=== PATIENT | female | born 1955 | race Caucasian/White ===

== ENCOUNTER → 2016-11-21 | Outpatient (CLI) | payer MEDICARE, OTHER ==
[~2016-11-21] MED LIST: AMLO5TAB22 PO; AMOX875T PO; CELE20TA PO; DICY1TAB26 PO; FERR324T4 PO; PROT40TA PO; SUCR1TAB PO; TAB-TAB PO; VITA20002 PO; ZOFR4TAB3 SL
== END ==
LOC: PLAB 09:36
PROVIDERS: ATTEND Colon & Rectal Surgery
DX: Z85.038 Personal history of other malignant neoplasm of large intestine (principal)
CPT/HCPCS: 36415; 82378

== ENCOUNTER → 2016-12-19 | Outpatient (CLI) | payer MEDICARE, OTHER ==
[2016-12-19 13:04] LABS: ANION GAP 7 MEQ/L (5-15); AST (GOT) 40 U/L (15-37); BLOOD UREA NITROGEN 17 MG/DL (7-18); CHLORIDE 106 MEQ/L (98-107); GLOMERULAR FILTRATION RATE 90 ML/MIN (>89); GLUCOSE,FASTING 81 MG/DL (74-99); SODIUM (NA) 142 MEQ/L (136-145)
[2016-12-19 13:15] LABS: ALKALINE PHOSPHATASE 73 U/L (45-117); ALT (GPT) 51 U/L (10-53); LDL CHOLESTEROL 143 MG/DL (0-99); TOTAL BILIRUBIN ADULT 0.5 MG/DL (0.2-1.0)
[2016-12-19 13:31] LABS: MEAN CELL VOLUME 85.3 FL (80.0-100.0); MEAN CORPUSCULAR HEMOGLOBIN 27.4 PG (27.0-34.0); MEAN CORPUSCULAR HGB CONC 32.2 % (32.0-36.0); PLATELET COUNT 204 TH/MM3 (150-450); RED BLOOD COUNT 5.27 MIL/MM3 (4.00-5.30); REVIEW FLAG FINAL; WHITE BLOOD COUNT 5.2 TH/MM3 (4.0-11.0)
== END ==
LOC: PLAB 09:19
PROVIDERS: ATTEND Family Medicine
DX: E78.2 Mixed hyperlipidemia (principal); C18.9 Malignant neoplasm of colon, unspecified; D63.0 Anemia in neoplastic disease; D50.9 Iron deficiency anemia, unspecified; I10 Essential (primary) hypertension; R55 Syncope and collapse; F32.9 Major depressive disorder, single episode, unspecified; M54.5 Low back pain; R73.09 Other abnormal glucose
CPT/HCPCS: 36415; 80053; 80061; 82378; 84443; 85027

== ENCOUNTER → 2017-03-19 | Outpatient (CLI) | payer MEDICARE, OTHER | LOC: PLAB 09:03 | PROVIDERS: ATTEND Colon & Rectal Surgery | DX: Z85.038 Personal history of other malignant neoplasm of large intestine (principal) | CPT/HCPCS: 36415; 82378 ==

== ENCOUNTER → 2017-06-05 | Outpatient (CLI) | payer MEDICARE, OTHER ==
[~2017-06-05] MED LIST changes: +ASPI-99 PO; +CARA1SUS3 PO; +FERR325T8 PO; +LOSA25TA PO; +LOVA10TA PO; +MULT-159 PO; +PANT20 PO; +VITA2000 PO
[2017-06-05 12:51] LABS: AUTOMATED NEUTROPHIL # 3.2 TH/MM3 (1.8-7.7); BASOPHIL # 0.1 TH/MM3 (0-0.2); BASOPHIL % 1.2 % (0.0-2.0); EOSINOPHIL # 0.1 TH/MM3 (0-0.4); EOSINOPHIL % 1.5 % (0.0-4.0); HEMATOCRIT 42.8 % (35.0-46.0); HEMO FLAGS DIFF FINAL; LYMPH % 26.9 % (9.0-44.0); LYMPHOCYTE # 1.4 TH/MM3 (1.0-4.8); MEAN CELL VOLUME 87.2 FL (80.0-100.0); MEAN CORPUSCULAR HEMOGLOBIN 28.5 PG (27.0-34.0); MEAN CORPUSCULAR HGB CONC 32.7 % (32.0-36.0); MONO % 8.3 % (0.0-8.0); NEUT % 62.1 % (16.0-70.0); PLATELET COUNT 224 TH/MM3 (150-450); RED CELL DISTRIBUTION WIDTH 14.6 % (11.6-17.2); WHITE BLOOD COUNT 5.2 TH/MM3 (4.0-11.0)
[2017-06-05 13:19] LABS: ANION GAP 6 MEQ/L (5-15); AST (GOT) 35 U/L (15-37); BICARBONATE 28.1 MEQ/L (21.0-32.0); BLOOD UREA NITROGEN 15 MG/DL (7-18); CHLORIDE 106 MEQ/L (98-107); GLOMERULAR FILTRATION RATE 92 ML/MIN (>89); GLUCOSE,FASTING 84 MG/DL (74-99); MAGNESIUM 2.3 MG/DL (1.5-2.5); POTASSIUM 3.8 MEQ/L (3.5-5.1); SODIUM (NA) 140 MEQ/L (136-145)
[2017-06-05 13:46] LABS: ALKALINE PHOSPHATASE 81 U/L (45-117); ALT (GPT) 43 U/L (10-53); FERRITIN 10 NG/ML (8-252); HDL CHOLESTEROL 40.3 MG/DL (40.0-60.0); LDL CHOLESTEROL 127 MG/DL (0-99); TOTAL BILIRUBIN ADULT 0.4 MG/DL (0.2-1.0); TRANSFERRIN IRON PROFILE 299 MG/DL (200-360)
== END ==
LOC: PLAB 08:34
PROVIDERS: ATTEND Nurse Practitioner
DX: D50.9 Iron deficiency anemia, unspecified (principal); E78.5 Hyperlipidemia, unspecified; E78.00 Pure hypercholesterolemia, unspecified; E66.3 Overweight; E55.9 Vitamin D deficiency, unspecified
CPT/HCPCS: 36415; 80053; 80061; 82306; 82607; 82728; 82746; 83540; 83550; 83735; 83970; 84100; 84590; 85025

== ENCOUNTER 2017-07-03 11:09 | Observation (INO) | payer MEDICARE, OTHER ==
[~2017-07-03] VITALS: Ht 160 cm; Wt 74.0 kg
[~2017-07-03 11:09] MED LIST changes: -ASPI-99 PO; -CARA1SUS3 PO; -FERR325T8 PO; -LOSA25TA PO; -LOVA10TA PO; -MULT-159 PO; -PANT20 PO; -VITA2000 PO
[2017-07-03 11:11] VITALS: BP 190/94; PULSE 91; RESP 20; TEMP 98.8; O2SAT 98
[2017-07-03] MEDS ORDERED: LOSA25TA PO (11:49)
[2017-07-03] MEDS ORDERED: SODIUM CHLORIDE 0.9% FLUSH 10 ML FLUSH IVF PRN (12:00)
--- NOTE | 2017-07-03 12:01 | PD ---
HPI Chief Complaint: Neuro Symptoms/ Deficits Time Seen by Provider: 12:00 Travel History International Travel<30 days: No Contact w/Intl Traveler<30days: No Traveled to known affect area: No History of Present Illness HPI 61 yo F with brief interval of R face numbness and R face droop prior to ER arrival. RUE numbness reported also resolved. no similar priors. Hx HTN/HLD. No hx CVA/CAD or DM. Location neurologic. Severity mild. Timing resolved. PFSH Past Medical History Arthritis: Yes Blood Disorders: No Depression: Yes Cancer: Yes (MELANOMA RIGHT LEG; COLON ) Cardiovascular Problems: Yes (NEUROCARDIOGENIC SYNCOPE) High Cholesterol: Yes Chemotherapy: No Diabetes: No Diminished Hearing: No Endocrine: No Gastrointestinal Disorders: Yes (IBS, NSAID INDUCED STOMACH EROSION ) GERD: Yes Glaucoma: No Genitourinary: No Hepatitis: No Hiatal Hernia: No Hypertension: Yes Immune Disorder: No Implanted Vascular Access Dvce: Yes (CAGE IN LUMBAR SPINE) Medical other: Yes (HX SEPSIS (EVISERATION STOMACH WOUND)) Musculoskeletal: Yes Neurologic: Yes (VERTIGO FROM HEART ISSUES ) Psychiatric: No Reproductive: No Respiratory: No Radiation Therapy: No Thyroid Disease: No Tetanus Vaccination: Unknown Influenza Vaccination: Yes Past Surgical History Abdominal Surgery: Yes (GASTRIC BYPASS, REPAIR GASTRIC LEAK, APPY, LAP. ALAN) AICD: No Appendectomy: Yes Body Medical Devices: HARDWARE LUMBAR SPINE Cholecystectomy: Yes Gynecologic Surgery: Yes (HYSTERECTOMY, LESA PACO) Hysterectomy: Yes Joint Replacement: No Neurologic Surgery: Yes (LUMBAR LAMINECTOMY WITH FUSION) Pacemaker: No Other Surgery: Yes Social History Alcohol Use: No Tobacco Use: No Substance Use: No Allergies-Medications (Allergen,Severity, Reaction): Coded Allergies: alcohol (Verified Allergy, Severe, HIVES, 07/03/17) diatrizoate meglumine (Verified Allergy, Severe, HIVES, 07/03/17) diclofenac (Verified Allergy, Severe, GASTRIC EROSION, 07/03/17) etodolac (Verified Allergy, Severe, GASTRIC EROSION, 07/03/17) flurbiprofen (Verified Allergy, Severe, GASTRIC EROSION, 07/03/17) gadobenic acid (Verified Allergy, Severe, HIVES, 07/03/17) gadodiamide (Verified Allergy, Severe, HIVES, 07/03/17) gadoteridol (Verified Allergy, Severe, HIVES, 07/03/17) ibuprofen (Verified Allergy, Severe, GASTRIC EROSION, 07/03/17) indomethacin (Verified Allergy, Severe, GASTRIC EROSION, 07/03/17) iodixanol (Verified Allergy, Severe, HIVES, 07/03/17) iohexol (Verified Allergy, Severe, HIVES, 07/03/17) ketoprofen (Verified Allergy, Severe, GASTRIC EROSION, 07/03/17) ketorolac (Verified Allergy, Severe, GASTRIC EROSION, 07/03/17) naproxen (Verified Allergy, Severe, GASTRIC EROSION, 07/03/17) oxaprozin (Verified Allergy, Severe, GASTRIC EROSION, 07/03/17) shellfish derived (Verified Allergy, Severe, HIVES, 07/03/17) iodine (Verified Allergy, Mild, HIVES, 07/03/17) 03/02/20 IV ONLY BETADINE OK potassium iodide (Verified Allergy, Mild, HIVES, 07/03/17) 03/02/20 IV ONLY BETADINE OK povidone-iodine (Verified Allergy, Mild, HIVES, 07/03/17) 03/02/20 IV ONLY BETADINE OK sodium iodide (Verified Allergy, Mild, HIVES, 07/03/17) 03/02/20 IV ONLY BETADINE OK sodium iodide (Verified Allergy, Mild, HIVES, 07/03/17) 03/02/20 IV ONLY BETADINE OK Reported Meds & Prescriptions Reported Meds & Active Scripts Active Reported Carafate Liq (Sucralfate) 1 Gm/10 Ml Susp 1 Gm PO TID PRN on empty stomach Multivitamins (Multivitamin) 1 Each Tab.chew 3 Tab PO DAILY Ferrous Sulfate 325 Mg (65 Mg Iron) Tablet 325 Mg PO DAILY Celexa (Citalopram Hydrobromide) 20 Mg Tab 20 Mg PO HS Vitamin D3 (Cholecalciferol) 2,000 Unit Cap 2,000 Units PO DAILY Losartan (Losartan Potassium) 25 Mg Tab 25 Mg PO DAILY Review of Systems Except as stated in HPI: all other systems reviewed are Neg General / Constitutional: No: Fever Physical Exam Narrative GENERAL: WNWD, 61 yo F, NAD, speaking sentences SKIN: Warm and dry. HEAD: Atraumatic. Normocephalic. EYES: Pupils equal and round. No scleral icterus. No injection or drainage. ENT: No nasal bleeding or discharge. Mucous membranes pink and moist. NECK: Trachea midline. No JVD. CARDIOVASCULAR: Regular rate and rhythm. RESPIRATORY: No accessory muscle use. Clear to auscultation. Breath sounds equal bilaterally. GASTROINTESTINAL: Abdomen soft, non-tender, nondistended. Hepatic and splenic margins not palpable. MUSCULOSKELETAL: Extremities without clubbing, cyanosis, or edema. No obvious deformities. NEUROLOGICAL: CN normal. Motor function normal 5/5 motor function throughout. PSYCHIATRIC: Appropriate mood and affect; insight and judgment normal. Data Data Last Documented VS Vital Signs Date Time Temp Pulse Resp B/P (MAP) Pulse Ox O2 Delivery O2 Flow Rate FiO2 07/03/17 13:00 64 18 195/86 (122) 97 Room Air 07/03/17 11:11 98.8 VS reviewed Orders Orders Electrocardiogram (07/03/17 12:00) Complete Blood Count With Diff (07/03/17 12:00) Basic Metabolic Panel (Bmp) (07/03/17 12:00) Ct Brain W/O Iv Contrast(Rout) (07/03/17 12:00) Ecg Monitoring (07/03/17 12:00) Iv Access Insert/Monitor (07/03/17 12:00) Oximetry (07/03/17 12:00) Sodium Chloride 0.9% Flush (Ns Flush) (07/03/17 12:00) Troponin I (07/03/17 12:21) Admit Order (Ed Use Only) (07/03/17 13:18) Labs Laboratory Tests Test 07/03/17 12:10 White Blood Count 5.8 TH/MM3 Red Blood Count 5.12 MIL/MM3 Hemoglobin 14.6 GM/DL Hematocrit 43.6 % Mean Corpuscular Volume 85.3 FL Mean Corpuscular Hemoglobin 28.6 PG Mean Corpuscular Hemoglobin Concent 33.5 % Red Cell Distribution Width 14.5 % Platelet Count 223 TH/MM3 Mean Platelet Volume 9.7 FL Neutrophils (%) (Auto) 60.1 % Lymphocytes (%) (Auto) 29.7 % Monocytes (%) (Auto) 7.9 % Eosinophils (%) (Auto) 1.1 % Basophils (%) (Auto) 1.2 % Neutrophils # (Auto) 3.5 TH/MM3 Lymphocytes # (Auto) 1.7 TH/MM3 Monocytes # (Auto) 0.5 TH/MM3 Eosinophils # (Auto) 0.1 TH/MM3 Basophils # (Auto) 0.1 TH/MM3 CBC Comment DIFF FINAL Differential Comment Blood Urea Nitrogen 17 MG/DL Creatinine 0.62 MG/DL Random Glucose 93 MG/DL Calcium Level 8.9 MG/DL Sodium Level 139 MEQ/L Potassium Level 3.9 MEQ/L Chloride Level 107 MEQ/L Carbon Dioxide Level 26.9 MEQ/L Anion Gap 5 MEQ/L Estimat Glomerular Filtration Rate 97 ML/MIN Troponin I LESS THAN 0.02 NG/ML MDM Medical Decision Making Medical Screen Exam Complete: Yes Emergency Medical Condition: Yes Medical Record Reviewed: Yes Differential Diagnosis TIA, CVA, electrolyte imbalance, anxiety, anemia Narrative Course CBC & BMP Diagram 07/03/17 12:10 Calcium Level 8.9 Tn < 0.02 Last [address] 07/03/17 1200 Signed Impressions: Service Date/Time: June 12:18 - CONCLUSION: Normal examination. Meng Portillo MD EKG: Sinus, rate 61, normal axis/intervals, no ischemia Possible TIA D/w Dr Solomon for [facility] Diagnosis Primary Impression: TIA (transient ischemic attack) Qualified Codes: G45.9 - Transient cerebral ischemic attack, unspecified Admitting Information Admitting Physician Requests: Observation Christoph Thompson MD Jul 03, 2017 12:01
[2017-07-03 12:21] VITALS: O2SAT 98
[2017-07-03 12:25] LABS: AUTOMATED NEUTROPHIL # 3.5 TH/MM3 (1.8-7.7); BASOPHIL # 0.1 TH/MM3 (0-0.2); BASOPHIL % 1.2 % (0.0-2.0); EOSINOPHIL # 0.1 TH/MM3 (0-0.4); EOSINOPHIL % 1.1 % (0.0-4.0); HEMATOCRIT 43.6 % (35.0-46.0); HEMO FLAGS DIFF FINAL; LYMPH % 29.7 % (9.0-44.0); LYMPHOCYTE # 1.7 TH/MM3 (1.0-4.8); MEAN CELL VOLUME 85.3 FL (80.0-100.0); MEAN CORPUSCULAR HEMOGLOBIN 28.6 PG (27.0-34.0); MEAN CORPUSCULAR HGB CONC 33.5 % (32.0-36.0); MONO % 7.9 % (0.0-8.0); NEUT % 60.1 % (16.0-70.0); PLATELET COUNT 223 TH/MM3 (150-450); RED BLOOD COUNT 5.12 MIL/MM3 (4.00-5.30); RED CELL DISTRIBUTION WIDTH 14.5 % (11.6-17.2); WHITE BLOOD COUNT 5.8 TH/MM3 (4.0-11.0)
[2017-07-03 12:41] LABS: BICARBONATE 26.9 MEQ/L (21.0-32.0); POTASSIUM 3.9 MEQ/L (3.5-5.1)
--- NOTE | 2017-07-03 12:44 | RADRPT ---
EXAM DATE/TIME: 07/03/2017 12:18 [facility] COMPARISON: No previous studies available for comparison. INDICATIONS : Sudden onset of blurred vision and right side extremity numbness. RADIATION DOSE: 56.35 CTDIvol (mGy) MEDICAL HISTORY : Cardiovascular disease. Hypertension. Vertigo. SURGICAL HISTORY : None. ENCOUNTER: Initial ACUITY: 1 day PAIN SCALE: 0/10 LOCATION: cranial TECHNIQUE: Multiple contiguous axial images were obtained of the head. Using automated exposure control and adj ustment of the mA and/or kV according to patient size, radiation dose was kept as low as reasonably a chievable to obtain optimal diagnostic quality images. DICOM format image data is available electro nically for review and comparison. FINDINGS: CEREBRUM: The ventricles are normal for age. No evidence of midline shift, mass lesion, hemorrhage or acute in farction. No extra-axial fluid collections are seen. POSTERIOR FOSSA: The cerebellum and brainstem are intact. The 4th ventricle is midline. The cerebellopontine angle i s unremarkable. EXTRACRANIAL: The visualized portion of the orbits is intact. SKULL: The calvaria is intact. No evidence of skull fracture. CONCLUSION: Normal examination. Meng Portillo MD on July 03, 2017 at 12:40 Board Certified Radiologist. This report was verified electronically.
[2017-07-03 13:00] VITALS: BP 195/86; PULSE 64; RESP 18; O2SAT 97
[2017-07-03] MEDS ORDERED: CELE20TA PO (13:21)
[2017-07-03] MEDS ORDERED: VITA2000 PO (13:21)
[2017-07-03] MEDS ORDERED: FERR325T8 PO (13:21)
[2017-07-03] MEDS ORDERED: MULT-159 PO (13:21)
[2017-07-03] MEDS ORDERED: CARA1SUS3 PO (13:21)
[2017-07-03 14:30] VITALS: BP 189/87; PULSE 68; RESP 19; O2SAT 97
[2017-07-03] MEDS ORDERED: SUCRALFATE 1 GM/10 ML CUP PO ONE (14:45)
[2017-07-03] MEDS ORDERED: GLUCAGON 1 MG/ML VIAL OTHER PRN (15:00)
[2017-07-03] MEDS ORDERED: SODIUM CHLORIDE 0.9% FLUSH 5 ML FLUSH IV FLUSH PRN (15:00)
[2017-07-03] MEDS ORDERED: DEXTROSE 50% IN WATER 50 ML VIAL(D50) IV PUSH PRN (15:00)
[2017-07-03] MEDS ORDERED: cloNIDine HCL 0.1 MG TAB PO PRN (16:00)
[2017-07-03 16:07] VITALS: BP 162/88; PULSE 65; RESP 14; O2SAT 97
--- NOTE | 2017-07-03 16:25 | HHI.HP ---
[facility] Michael Marquis MD Admission Diagnosis TIA Diagnoses: Chief Complaint: Transient neuro symptoms Travel History International Travel<30 Days: No Contact w/Intl Traveler <30 Da: No Traveled to Known Affected Are: No History of Present Illness Written by Asaf Mace, acting as scribe for Dr. Solomon on 07/03/17 at 16:25. 61-year-old female with past medical history of ideation, GERD, HTN, depression , history of colon cancer and melanoma, history of neurocardiogenic syncope, history gastric bypass. Patient states that earlier today she began having bilateral peripheral vision blurriness. She states she checked her blood pressure at the time which was 210/100. She also had associated right hand weakness and numbness that lasted for a few minutes. She also had transient numbness of her right face lasted for a few minutes. All her symptoms have resolved at this time. She didn't have any right lower extremity symptoms. She was a bit dizzy at the time but that has resolved. She states that she occasionally has intermittent nausea at baseline which she did earlier and improved with Zofran. The patient had an MRI with contrast of her hand done yesterday for arthritis. She denies any allergies to NSAIDs, only GI upset due to gastric bypass history. She states she can take aspirin she gets Protonix. She denies any symptoms like this in the past. Review of Systems Except as stated in HPI: all other systems reviewed are Neg Past Family Social History Past Medical History Iron deficiency anemia GERD History gastric bypass Hypertension History of neurocardiogenic syncope next and depression History of colon cancer History of melanoma Past Surgical History Appendectomy Cholecystectomy Gastric bypass Spine surgery with hardware placement Partial colectomy for cancer Bladder suspension Reported Medications Reported Meds & Active Scripts Active Reported Carafate Liq (Sucralfate) 1 Gm/10 Ml Susp 1 Gm PO TID PRN on empty stomach Multivitamins (Multivitamin) 1 Each Tab.chew 3 Tab PO DAILY Ferrous Sulfate 325 Mg (65 Mg Iron) Tablet 325 Mg PO DAILY Celexa (Citalopram Hydrobromide) 20 Mg Tab 20 Mg PO HS Vitamin D3 (Cholecalciferol) 2,000 Unit Cap 2,000 Units PO DAILY Losartan (Losartan Potassium) 25 Mg Tab 25 Mg PO DAILY Allergies: Coded Allergies: alcohol (Verified Allergy, Severe, HIVES, 07/03/17) diatrizoate meglumine (Verified Allergy, Severe, HIVES, 07/03/17) diclofenac (Verified Allergy, Severe, GASTRIC EROSION, 07/03/17) etodolac (Verified Allergy, Severe, GASTRIC EROSION, 07/03/17) flurbiprofen (Verified Allergy, Severe, GASTRIC EROSION, 07/03/17) gadobenic acid (Verified Allergy, Severe, HIVES, 07/03/17) gadodiamide (Verified Allergy, Severe, HIVES, 07/03/17) gadoteridol (Verified Allergy, Severe, HIVES, 07/03/17) ibuprofen (Verified Allergy, Severe, GASTRIC EROSION, 07/03/17) indomethacin (Verified Allergy, Severe, GASTRIC EROSION, 07/03/17) iodixanol (Verified Allergy, Severe, HIVES, 07/03/17) iohexol (Verified Allergy, Severe, HIVES, 07/03/17) ketoprofen (Verified Allergy, Severe, GASTRIC EROSION, 07/03/17) ketorolac (Verified Allergy, Severe, GASTRIC EROSION, 07/03/17) naproxen (Verified Allergy, Severe, GASTRIC EROSION, 07/03/17) oxaprozin (Verified Allergy, Severe, GASTRIC EROSION, 07/03/17) shellfish derived (Verified Allergy, Severe, HIVES, 07/03/17) atorvastatin (Verified Allergy, Intermediate, MUSCLE ACHES, 07/03/17) iodine (Verified Allergy, Mild, HIVES, 07/03/17) 03/02/20 IV ONLY BETADINE OK potassium iodide (Verified Allergy, Mild, HIVES, 07/03/17) 03/02/20 IV ONLY BETADINE OK povidone-iodine (Verified Allergy, Mild, HIVES, 07/03/17) 03/02/20 IV ONLY BETADINE OK sodium iodide (Verified Allergy, Mild, HIVES, 07/03/17) 03/02/20 IV ONLY BETADINE OK sodium iodide (Verified Allergy, Mild, HIVES, 07/03/17) 03/02/20 IV ONLY BETADINE OK Active Ordered Medications Current Medications Medications (Trade) Dose Ordered Sig/[place] Route Start Time Stop Time Status Last Admin (NS Flush) 2 ml UNSCH PRN IVF 07/03/17 12:00 (NS Flush) 2 ml BID IV FLUSH 07/03/17 21:00 (NS Flush) 2 ml UNSCH PRN IV FLUSH 07/03/17 15:00 (Lipitor) 10 mg HS PO 07/03/17 21:00 (NovoLOG SUPPLEMENTAL SCALE) 1 ACHS SQ 07/03/17 17:00 (D50w (Vial) Inj) 50 ml UNSCH PRN IV PUSH 07/03/17 15:00 (Glucagon Inj) 1 mg UNSCH PRN OTHER 07/03/17 15:00 (Heparin Inj) 5,000 units Q8HR SQ 07/03/17 22:00 (Catapres) 0.1 mg Q6H PRN PO 07/03/17 16:00 07/03/17 15:27 Family History Denies any family history of stroke or TIA Family history of high blood pressure and diabetes Sister had melanoma Brother had prostate cancer Social History Smoked socially in high school, none since Denies any alcohol or drug use with 4 kids Physical Exam Vital Signs Vital Signs Date Time Temp Pulse Resp B/P (MAP) Pulse Ox O2 Delivery O2 Flow Rate FiO2 07/03/17 16:07 65 14 162/88 (112) 97 Room Air 07/03/17 14:30 68 19 189/87 (121) 97 Room Air 07/03/17 13:00 64 18 195/86 (122) 97 Room Air 07/03/17 12:21 Automatic Cuff 98 Room Air 07/03/17 11:11 98.8 91 20 190/94 (126) 98 Room Air Physical Exam GENERAL: Well-developed well-nourished. In no acute distress. SKIN: Warm and dry. No lesions noted. HEENT: Normocephalic. Pupils equal and round. EOMs intact. Mucous membranes pink and moist. CARDIOVASCULAR: Regular rate and rhythm. No murmur appreciated. RESPIRATORY: No accessory muscle use. Clear to auscultation. Breath sounds equal bilaterally. GASTROINTESTINAL: Abdomen soft, non-tender, nondistended. Bowel sounds x4. MUSCULOSKELETAL: No obvious deformities. No clubbing or cyanosis. No edema. NEUROLOGICAL: Awake and alert. No focal neurological deficits. Moves upper and lower extremities spontaneously. Normal speech. Strength 5/5 in all extremities. No facial asymmetry. Sensation grossly intact bilaterally. PSYCHIATRIC: Appropriate mood and affect; insight and judgment normal. Laboratory Laboratory Tests Test 07/03/17 12:10 White Blood Count 5.8 Red Blood Count 5.12 Hemoglobin 14.6 Hematocrit 43.6 Mean Corpuscular Volume 85.3 Mean Corpuscular Hemoglobin 28.6 Mean Corpuscular Hemoglobin Concent 33.5 Red Cell Distribution Width 14.5 Platelet Count 223 Mean Platelet Volume 9.7 Neutrophils (%) (Auto) 60.1 Lymphocytes (%) (Auto) 29.7 Monocytes (%) (Auto) 7.9 Eosinophils (%) (Auto) 1.1 Basophils (%) (Auto) 1.2 Neutrophils # (Auto) 3.5 Lymphocytes # (Auto) 1.7 Monocytes # (Auto) 0.5 Eosinophils # (Auto) 0.1 Basophils # (Auto) 0.1 CBC Comment DIFF FINAL Differential Comment Blood Urea Nitrogen 17 Creatinine 0.62 Random Glucose 93 Calcium Level 8.9 Sodium Level 139 Potassium Level 3.9 Chloride Level 107 Carbon Dioxide Level 26.9 Anion Gap 5 Estimat Glomerular Filtration Rate 97 Troponin I LESS THAN 0.02 Result Diagram: 07/03/17 1210 07/03/17 1210 Imaging Last Impressions Head CT 07/03/17 1200 Signed Impressions: Service Date/Time: June 12:18 - CONCLUSION: Normal examination. MD [facility] VTE Risk Assessment Caprini VTE Risk Assessment: Mod/High Risk (score >= 2) Caprini Risk Assessment Model Point Value = 1 Point Value = 2 Point Value = 3 Point Value = 5 Age 41-60 Minor surgery BMI > 25 kg/m2 Swollen legs Varicose veins or History of unexplained or recurrent spontaneous Oral contraceptives or hormone replacement Sepsis (< 1 month) Serious lung disease, including pneumonia (< 1 month) Abnormal pulmonary function Acute myocardial infarction Congestive heart failure (< 1 month) History of inflammatory bowel disease Medical patient at bed rest Age 61-74 Arthroscopic surgery Major open surgery (> 45 min) Laparoscopic surgery (> 45 min) Malignancy Confined to bed (> 72 hours) Immobilizing plaster cast Central venous access Age >= 75 History of VTE Family history of VTE Factor V Leiden Prothrombin [id number] Lupus anticoagulant Anticardiolipin antibodies Elevated serum homocysteine Heparin-induced thrombocytopenia Other congenital or acquired thrombophilia Stroke (< 1 month) Elective arthroplasty Hip, pelvis, or leg fracture Acute spinal cord injury (< 1 month) Prophylaxis Regimen Total Risk Factor Score Risk Level Prophylaxis Regimen 0-1 Low Early ambulation 2 Moderate Order ONE of the following: *Sequential Compression Device (SCD) *Heparin 5000 units SQ BID 3-4 Higher Order ONE of the following medications: *Heparin 5000 units SQ TID *Enoxaparin/Lovenox 40 mg SQ daily (WT < 150 kg, CrCl > 30 mL/min) *Enoxaparin/Lovenox 30 mg SQ daily (WT < 150 kg, CrCl > 10-29 mL/min) *Enoxaparin/Lovenox 30 mg SQ BID (WT < 150 kg, CrCl > 30 mL/min) AND/OR *Sequential Compression Device (SCD) 5 or more Highest Order ONE of the following medications: *Heparin 5000 units SQ TID (Preferred with Epidurals) *Enoxaparin/Lovenox 40 mg SQ daily (WT < 150 kg, CrCl > 30 mL/min) *Enoxaparin/Lovenox 30 mg SQ daily (WT < 150 kg, CrCl > 10-29 mL/min) *Enoxaparin/Lovenox 30 mg SQ BID (WT < 150 kg, CrCl > 30 mL/min) AND *Sequential Compression Device (SCD) Assessment and Plan Assessment and Plan 61-year-old female with past medical history of ideation, GERD, HTN, depression , history of colon cancer and melanoma, history of neurocardiogenic syncope, history gastric bypass who presented for transient neuro symptoms. TIA: Transient vision changes, right face and upper extremity numbness. Symptoms have resolved at this time. Blood pressure was high at the time, possibly secondary to uncontrolled hypertension. Reviewed: Head CT unremarkable. Telemetry in the ED with NSR. -Standard TIA/stroke workup including swallow eval, stroke scale, neuro checks, telemetry monitoring -Check brain MRI/MRA, carotid ultrasound -Check hemoglobin A1c and lipid profile -Start aspirin with PPI -Continue statin -PT/OT/ST Hypertension: Currently accelerated but improving. Permissive hypertension for now. Resume home losartan probably tomorrow. Clonidine as needed. Other chronic medical conditions include SANDRA, depression, vitamin D deficiency, GERD: Stable at this time and will continue home medications as indicated DVT prophylaxis: Heparin This note was transcribed by gayle Mace . I, Dr. Cayetano Harman personally performed the history, physical exam, and medical decision making; and confirmed the accuracy of the information in the transcribed note. Authenticated by Dr. Cayetano Harman on 07/03/17 at 16:40. Discussed Condition With Patient with and daughter at bedside, ED staff Asaf Mace Jul 03, 2017 16:25 Cayetano So MD Jul 03, 2017 16:54
--- NOTE | 2017-07-03 17:41 | RADRPT ---
EXAM DATE/TIME: 07/03/2017 16:33 [facility] COMPARISON: No previous studies available for comparison. INDICATIONS : Cerebrovascular accident. MEDICAL HISTORY : Hypercholesterolemia. Gastroesophageal reflux disease. Hypertension. Vertigo. IBS. Depression. Melano ma right leg. Colon cancer. SURGICAL HISTORY : Cholecystectomy. Appendectomy. Gastric bypass. Hysterectomy. Lumbar laminectomy. Bladder suspension. Right knee surgery. ENCOUNTER: Initial ACUITY: 1 day PAIN SCORE: 0/10 LOCATION: Bilateral neck PEAK SYSTOLIC VELOCITIES (cm/sec): ICA/CCA RATIO: Right: 1.1 Left: 1.4 ICA: Right: 68 Left: 77 CCA: Right: 64 Left: 55 ECA: Right: 100 Left: 128 VERTEBRAL: Right: 44 antegrade Left: 54 antegrade Elevated flow velocities and ICA/CCA ratios have been found to correlate with increased degrees of vessel stenosis, calculated as percentage of diameter relative to a normal segment of distal ICA/CCA FINDINGS: RIGHT CAROTID: There is moderate atherosclerotic plaquing of the bifurcation. The waveforms are within normal limits . LEFT CAROTID: There is moderate atherosclerotic plaquing at the bifurcation. The waveforms are within normal limits . VERTEBRAL ARTERIES: Antegrade flow is seen in both vertebral arteries. MISCELLANEOUS: None. CONCLUSION: 1. There is fairly extensive plaquing of the bifurcations with both hard and soft plaque present. No hemodynamically significant carotid stenosis is evident by velocity measurements. Christoph Ahmadi MD on July 03, 2017 at 17:37 Board Certified Radiologist. This report was verified electronically.
[2017-07-03] MEDS: INSULIN ASPART SUPPLEMENTAL SCALE SQ SCH ×2 (18:08→20:44)
[2017-07-03] MEDS: PANTOPRAZOLE SOD 20 MG DELAYED RELEASE TAB PO SCH (18:27)
[2017-07-03 20:26] VITALS: BP 164/77; PULSE 55; RESP 18; TEMP 97.9; O2SAT 97
--- NOTE | 2017-07-03 20:27 | RADRPT ---
EXAM DATE/TIME: 07/03/2017 18:36 [facility] COMPARISON: MRI BRAIN W/O CONTRAST, July 03, 2017, 18:36. US CAROTID ARTERIES, July 03, 2017, 16:33. CT BRAIN W/O CONTRAST, July 03, 2017, 12:18. INDICATIONS : CVA. Right sided weakness and facial droop. MEDICAL HISTORY : Hypertension. Carcinoma, colon. SURGICAL HISTORY : Hysterectomy. Cholecystectomy. Appendectomy. Back fusion and gastric bypass. ENCOUNTER: Initial ACUITY: 1 day PAIN SCORE: 0/10 LOCATION: Head. Please note a normal MRA of the brain does not entirely exclude the possibility of a small aneurysm, nor the possibility of distal intracranial vessel disease. TECHNIQUE: 3D time of flight MRA was performed. Source images, multiplanar STS MIP, and 3D volume MIP reconstru ctions were reviewed. FINDINGS: There is excellent visualization of the major intracranial arteries out to the second-order branch ve ssels. There is no evidence for aneurysm, vessel truncation or stenosis, and no evidence for vascula r malformation. CONCLUSION: Normal MRA of the brain. Meng Jacobs MD on July 03, 2017 at 20:25 Board Certified Radiologist. This report was verified electronically.
--- NOTE | 2017-07-03 20:29 | RADRPT ---
EXAM DATE/TIME: 07/03/2017 18:36 [facility] COMPARISON: No previous studies available for comparison. INDICATIONS : CVA. Right arm weakness and right facial droop. MEDICAL HISTORY : Hypertension. Carcinoma, colon. SURGICAL HISTORY : Appendectomy. Hysterectomy. Cholecystectomy. Gastric bypass and back fusion. ENCOUNTER: Initial ACUITY: 1 day PAIN SCORE: 0/10 LOCATION: Head. TECHNIQUE: Multiplanar, multisequence MRI of the brain was performed without contrast. FINDINGS: CEREBRUM: The ventricles are normal for age. No evidence of midline shift, mass lesion, hemorrhage or acute in farction. No extraaxial fluid collections are seen. The sella is empty. WHITE MATTER: No significant signal abnormalities are seen in the white matter. POSTERIOR FOSSA: The cerebellum and brainstem are intact. The 4th ventricle is midline. The cerebellopontine angle is unremarkable. The cerebellar tonsils are normal in position. DIFFUSION IMAGING: No focal areas of restricted diffusion are seen. No evidence of acute infarction. EXTRACRANIAL: The visualized portions of the orbits and paranasal sinuses are unremarkable. Skull hyperostosis agai n noted. CONCLUSION: 1. No acute intracranial abnormality. 2. Incidentally seen empty sella. Meng Jacobs MD on July 03, 2017 at 20:27 Board Certified Radiologist. This report was verified electronically.
[2017-07-03 20:31] LABS: HEMOGLOBIN A1a 1.1 %; HEMOGLOBIN A1b 0.8 %; HEMOGLOBIN Ao 85.2 %; HEMOGLOBIN LA1C 2.2 %; HEMOGLOBIN P3 5.3 %
[2017-07-03] MEDS ORDERED: CITALOPRAM HYDROBROMIDE 20 MG TAB PO SCH (21:00)
[2017-07-03] MEDS: SODIUM CHLORIDE 0.9% FLUSH 5 ML FLUSH IV FLUSH SCH (21:00)
[2017-07-03] MEDS ORDERED: ATORVASTATIN 10 MG TAB PO SCH (21:00)
[2017-07-03] MEDS: HEPARIN SODIUM - SQ 10,000 UNITS/ML VIAL SQ SCH (21:36)
[2017-07-03] MEDS ORDERED: ACETAMINOPHEN 325 MG TAB PO PRN (22:30)
[2017-07-04] VITALS (8 sets, daily range): BP systolic 82–170; BP diastolic 52–86; PULSE 47–95; RESP 16–18; TEMP 97.7–98.4; O2SAT 92–98
[2017-07-04] MEDS: HEPARIN SODIUM - SQ 10,000 UNITS/ML VIAL SQ SCH ×2 (04:44→14:20)
[2017-07-04] MEDS: INSULIN ASPART SUPPLEMENTAL SCALE SQ SCH (07:59)
[2017-07-04] MEDS ORDERED: CHOLECALCIFEROL (VIT D3) 1000 UNIT TAB PO SCH (09:00)
[2017-07-04] MEDS ORDERED: ASPIRIN EC 81 MG TABEC PO SCH (09:00)
[2017-07-04] MEDS: SODIUM CHLORIDE 0.9% FLUSH 5 ML FLUSH IV FLUSH SCH (09:00)
[2017-07-04] MEDS ORDERED: FERROUS SULFATE 325 MG (65 MG ELEMENTAL IRON) TAB PO SCH (09:00)
[2017-07-04] MEDS: PANTOPRAZOLE SOD 20 MG DELAYED RELEASE TAB PO SCH (10:17)
--- NOTE | 2017-07-04 10:33 | EKG ---
Date Performed: 07/03/2017 Time Performed: 13:04:18 PTAGE: 61 years EKG: Sinus rhythm Compared to previous tracing nonspecific ST segment changes have improved BORDERLINE ECG PREVIOUS TRACING : 05/16/2015 02.31 DOCTOR: Otis Fontanez Interpretating Date/Time 07/04/2017 10:32:24
--- NOTE | 2017-07-04 11:27 | HHI.PR ---
Subjective Remarks Follow-up for TIA. The patient is feeling much better today. She states her headache resolved overnight. She denies any further numbness, tingling, or weakness. She states she was previously on folic acid for cholesterol, has not tolerated Lipitor in the past. She tolerated the aspirin with no issues. She feels well and is hoping to go home soon. Objective Vitals Vital Signs Date Time Temp Pulse Resp B/P (MAP) Pulse Ox O2 Delivery O2 Flow Rate FiO2 07/04/17 07:15 98.1 53 16 126/66 (86) 96 07/04/17 07:10 98.4 95 18 136/86 (103) 92 07/04/17 04:24 98.0 58 16 126/61 (82) 96 07/04/17 00:29 98.1 56 18 110/70 (83) 98 07/03/17 20:26 97.9 55 18 164/77 (106) 97 07/03/17 17:16 07/03/17 16:07 65 14 162/88 (112) 97 Room Air 07/03/17 14:30 68 19 189/87 (121) 97 Room Air 07/03/17 13:00 64 18 195/86 (122) 97 Room Air 07/03/17 12:21 Automatic Cuff 98 Room Air Result Diagram: 07/03/17 1210 07/03/17 1210 Imaging Last Impressions Head CT 07/03/17 1200 Signed Impressions: Service Date/Time: June 12:18 - CONCLUSION: Normal examination. Meng Portillo MD Head Magnetic Resonance Angiography 07/03/17 0000 Signed Impressions: Service Date/Time: June 18:36 - CONCLUSION: Normal MRA of the brain. Meng Jacobs MD Carotid Artery Ultrasound 07/03/17 0000 Signed Impressions: Service Date/Time: June 16:33 - CONCLUSION: 1. There is fairly extensive plaquing of the bifurcations with both hard and soft plaque present. No hemodynamically significant carotid stenosis is evident by velocity measurements. Christoph Ahmadi MD Brain MRI 07/03/17 0000 Signed Impressions: Service Date/Time: June 18:36 - CONCLUSION: 1. No acute intracranial abnormality. 2. Incidentally seen empty sella. Meng Jacobs MD Objective Remarks GENERAL: Well-developed well-nourished. In no acute distress. SKIN: Warm and dry. No lesions noted. HEENT: Normocephalic. Pupils equal and round. Mucous membranes pink and moist. CARDIOVASCULAR: Regular rate and rhythm. No murmur appreciated. RESPIRATORY: No accessory muscle use. Clear to auscultation. Breath sounds equal bilaterally. GASTROINTESTINAL: Abdomen soft, non-tender, nondistended. Bowel sounds x4. MUSCULOSKELETAL: No obvious deformities. No clubbing or cyanosis. No edema. NEUROLOGICAL: Awake and alert. No focal neurological deficits. Moves upper and lower extremities spontaneously. Normal speech. Strength 5/5. No facial asymmetry. Sensation grossly intact. PSYCHIATRIC: Appropriate mood and affect; insight and judgment normal. A/P Assessment and Plan 61-year-old female with past medical history of ideation, GERD, HTN, depression , history of colon cancer and melanoma, history of neurocardiogenic syncope, history gastric bypass who presented for transient neuro symptoms. TIA: Transient vision changes, right face and upper extremity numbness. Symptoms have resolved at this time. Blood pressure was high at the time, possibly secondary to uncontrolled hypertension. Reviewed: Head CT unremarkable. EKG with NSR. Telemetry reviewed with no A. fib. Brain MRI with no acute intracranial abnormality. Brain MRA normal. Carotid ultrasound with plaquing but no hemodynamically significant stenosis seen. Hemoglobin A1c 5.4. -Standard TIA/stroke workup including swallow eval, stroke scale, neuro checks, telemetry monitoring -Liver profile pending -Start aspirin with PPI -Consider starting low-dose statin, discussed with the patient who is agreeable -PT/OT/ST, no restrictions to date Hypertension: Accelerated upon admission, well-controlled overnight. Resume home losartan. Clonidine as needed. Other chronic medical conditions include SANDRA, depression, vitamin D deficiency, GERD: Stable at this time and will continue home medications as indicated DVT prophylaxis: Heparin Discharge Planning Probably discharge later today if patient remains stable after lipid profile is done. 1700 Lipid profile showed LDL 118, patient agreeable to try lovastatin. Home losartan dose was resumed and patient had an episode of orthostasis. She denies any episodes like this at home. At this time she denies any further lightheadedness or dizziness with position changes. She does not want to stay in the hospital as asking go home. She does have a blood pressure machine at home. We'll give some IVF now. Discussed plan of care with the patient, patient will check her blood pressure in the morning and if hypertensive will take half of her losartan and recheck later in the day and if still hypertensive will take the other half. Instructed that if BP remains soft to hold losartan. Instructed to follow-up with PCP next week. Recommend slow transitions from sitting to standing. Patient is stable at this time and asymptomatic. We'll discharge home today for outpatient follow-up with PCP. Asaf Mace Jul 04, 2017 11:27
[2017-07-04] MEDS: SUCRALFATE 1 GM/10 ML CUP PO PRN ×2 (12:43→18:01)
[2017-07-04] MEDS ORDERED: LOSARTAN 25 MG TAB PO ONE (14:00)
[2017-07-04 14:10] LABS: HDL CHOLESTEROL 40.2 MG/DL (40.0-60.0)
[2017-07-04] MEDS ORDERED: LOVA10TA PO (14:29)
[2017-07-04] MEDS ORDERED: ASPI-99 PO (14:29)
[2017-07-04] MEDS ORDERED: PANT20 PO (14:29)
[2017-07-04] MEDS ORDERED: SODIUM CHLORID 0.9% 500 ML INJ 500 ML IV ONE (16:45)
[2017-07-05] MEDS ORDERED: LOSARTAN 25 MG TAB PO SCH (09:00)
== END 2017-07-04 18:50 | disposition home or self-care (01) ==
LOC: NEPC 11:09 → NEDA 13:19 → NEPHCDU 17:19
PROVIDERS: ADMIT Hospitalist; ATTEND Hospitalist
DX: G45.9 Transient cerebral ischemic attack, unspecified (principal); I10 Essential (primary) hypertension; E78.5 Hyperlipidemia, unspecified; E55.9 Vitamin D deficiency, unspecified; F32.9 Major depressive disorder, single episode, unspecified; K21.9 Gastro-esophageal reflux disease without esophagitis; K58.9 Irritable bowel syndrome, unspecified; R94.31 Abnormal electrocardiogram [ECG] [EKG]; M19.90 Unspecified osteoarthritis, unspecified site; Z85.038 Personal history of other malignant neoplasm of large intestine; Z85.820 Personal history of malignant melanoma of skin; Z98.84 Bariatric surgery status
CPT/HCPCS: 70450; 70544; 70551; 80048; 80061; 82948; 83036; 84484; 85025; 92610; 93005; 93880; 96125; 96360; 96372; 97161; 97165; 99285; G0378; G8987; G8988; G8989; J1644; J7040

== ENCOUNTER 2017-08-21 11:31 | Day surgery (SDC) | payer MEDICARE, OTHER ==
[~2017-08-21 11:31] MED LIST changes: -AMLO5TAB22 PO; -AMOX875T PO; +ASPI1TAB56 PO; +CARA1SUS3 PO; -DICY1TAB26 PO; -FERR324T4 PO; +FERR325T18 PO; +LOSA25TA PO; +LOVA10TA PO; +MULT-159 PO; +PANT20 PO; -PROT40TA PO; -SUCR1TAB PO; -TAB-TAB PO; +VITA2000 PO; -VITA20002 PO; -ZOFR4TAB3 SL
[2017-08-21] MEDS ORDERED: METOPROLOL TARTRATE 25 MG TAB PO PRN (12:00)
[2017-08-21] MEDS ORDERED: SODIUM CHLORID 0.9% 500 ML IV PRN (12:00)
[2017-08-21] MEDS ORDERED: CHLORHEXIDINE GLUCONATE 2 % 1 PACK (2 CLOTHS) TOPICAL PRN (12:00)
[2017-08-21] MEDS ORDERED: LACTATED RINGER'S 1000 ML IV PRN (12:00)
[2017-08-21] MEDS ORDERED: MULTTAB67 PO (12:06)
[2017-08-21] MEDS ORDERED: TYLE325T PO (12:06)
[2017-08-21] MEDS ORDERED: ceFAZolin 2 GM PREMIX 50 ML IV SCH (13:45)
[2017-08-21] MEDS ORDERED: PROPOFOL 200 MG/20 ML AMP ONE (14:26)
--- NOTE | 2017-08-21 23:09 | MP ---
cc: YOLANDA ALBARADO MD DATE OF SURGERY 08/21/17 PROCEDURE Transesophageal echocardiogram INDICATIONS Rule out cryptogenic stroke. CONSENT Informed consent was obtained prior to procedure. Risks of , bleeding, myocardial infarction, perforation, aspiration, foreseen and unforeseen complications reviewed. The patient fully appeared to understand the risks. PROCEDURAL STATEMENT Anesthesia was given as per the Anesthesia Department with Diprivan. the patient then underwent full transesophageal echo with agitated contrast solution, I.e., bubble studies. FINDINGS The left atrial appendage is free of thrombus. The mitral valve moved normally. The aortic valve was trileaflet moved normally. The tricuspid valve moved normally. The interatrial septum was intact. There was no evidence of [id number] shunting on bubble study. The aorta was visualized. Mild plaquing was noted but no significant dissection, etc. PLAN Proceed with loop recorder placement. Negative transesophageal echo for cryptogenic source. No left atrial appendage thrombus. No evidence of [id number] shunting. Negative bubble study. Yolanda Albarado MD, FRCP,[facility] [place]/ /2:32 PM /10:59 PM
--- NOTE | 2017-08-21 23:21 | MP ---
cc: YOLANDA ALBARADO MD, DAVID OMBOGO,KE Sauer MD DATE OF SURGERY 08/21/17 PROCEDURE Loop recorder placement. INDICATION Cryptogenic stroke. INDICATION Cryptogenic stroke. Negative LIA. Proceed with loop recorder placement. Following transesophageal echo, the patient's third to fourth intercostal space was carefully anesthetized using lidocaine. Using the H5 introducer device, the H5 Reveal link serial # [id number] was injected subcutaneously under the skin. The pocket was closed with Steri-Strips. The device was interrogated by the electronic rep. It was found to have QRS voltage of 0.4 mV. CONCLUSION Successful placement of loop recorder with acceptable sensing. PLAN We will plan to discharge the patient later today. Yolanda Albarado MD, FRCP,[facility] [place]/ /2:35 PM /11:09 PM
--- NOTE | 2017-08-22 18:35 | EKG ---
Date Performed: 08/21/2017 Time Performed: 12:15:30 PTAGE: 61 years EKG: Sinus bradycardia. Prolonged QT interval Anterolateral T wave changes are nonspecific Borde rline ECG Compared to PREVIOUS TRACING , DC interval somewhat longer, otherwise no significant change. PREVIOUS TRACIN07/03/2017 13.04 DOCTOR: Stanford Singh Interpretating Date/Time 08/22/2017 18:35:01
== END 2017-08-21 15:54 | disposition home or self-care (01) ==
LOC: HDOC 11:31 → HDIC 11:32 → HDOC 15:54
PROVIDERS: ATTEND Internal Medicine Cardiovascular Disease
DX: R55 Syncope and collapse (principal); I65.23 Occlusion and stenosis of bilateral carotid arteries; I10 Essential (primary) hypertension; K21.9 Gastro-esophageal reflux disease without esophagitis; I34.0 Nonrheumatic mitral (valve) insufficiency; Z79.82 Long term (current) use of aspirin
CPT/HCPCS: 33282; 93005; 93312; 93320; 93325; C1764; J0690; J3010

== ENCOUNTER → 2017-09-08 | Outpatient (CLI) | payer MEDICARE, OTHER ==
[~2017-09-08] MED LIST changes: -MULT-159 PO; +MULTTAB67 PO; +TYLE325T PO; -VITA2000 PO
[2017-09-11 13:52] LABS: BETA2 GLYCOPROTEIN I AB IGA LESS THAN 9.0 SAU (< OR = 20)
== END ==
LOC: PLAB 08:20
PROVIDERS: ATTEND Specialist
DX: Z86.73 Personal history of transient ischemic attack (TIA), and cerebral infarction without residual deficits (principal)
CPT/HCPCS: 36415; 81240; 81241; 82746; 83090; 85240; 85300; 85303; 85306; 85613; 85730; 86146; 86147

== ENCOUNTER → 2017-12-17 | Outpatient (CLI) | payer MEDICARE, OTHER ==
[2017-12-17 10:53] LABS: AUTOMATED NEUTROPHIL # 2.6 TH/MM3 (1.8-7.7); EOSINOPHIL # 0.1 TH/MM3 (0-0.4); EOSINOPHIL % 2.2 % (0.0-4.0); HEMATOCRIT 41.6 % (35.0-46.0); HEMOGLOBIN 13.9 GM/DL (11.6-15.3); LYMPH % 34.7 % (9.0-44.0); LYMPHOCYTE # 1.7 TH/MM3 (1.0-4.8); MEAN CELL VOLUME 86.2 FL (80.0-100.0); MEAN CORPUSCULAR HEMOGLOBIN 28.9 PG (27.0-34.0); MEAN CORPUSCULAR HGB CONC 33.5 % (32.0-36.0); MONO % 7.7 % (0.0-8.0); MONOCYTE # 0.4 TH/MM3 (0-0.9); NEUT % 54.4 % (16.0-70.0); PLATELET COUNT 218 TH/MM3 (150-450); RED BLOOD COUNT 4.82 MIL/MM3 (4.00-5.30); RED CELL DISTRIBUTION WIDTH 14.6 % (11.6-17.2); WHITE BLOOD COUNT 4.8 TH/MM3 (4.0-11.0)
[2017-12-17 11:02] LABS: ALBUMIN 3.9 GM/DL (3.4-5.0); AST (GOT) 35 U/L (15-37); BICARBONATE 29.6 MEQ/L (21.0-32.0); BLOOD UREA NITROGEN 19 MG/DL (7-18); CHLORIDE 105 MEQ/L (98-107); CHOLESTEROL 122 MG/DL (120-200); CREATININE 0.77 MG/DL (0.50-1.00); GLOMERULAR FILTRATION RATE 75 ML/MIN (>89); GLUCOSE,FASTING 82 MG/DL (74-99); SODIUM (NA) 141 MEQ/L (136-145)
[2017-12-17 11:14] LABS: ALKALINE PHOSPHATASE 75 U/L (45-117); ALT (GPT) 47 U/L (10-53); CHOLESTEROL/ HDL RATIO 2.81 RATIO; FREE T4 1.03 NG/DL (0.76-1.46); HDL CHOLESTEROL 43.3 MG/DL (40.0-60.0); LDL CHOLESTEROL 61 MG/DL (0-99); TOTAL BILIRUBIN ADULT 0.4 MG/DL (0.2-1.0); TOTAL PROTEIN 7.2 GM/DL (6.4-8.2); TRIGLYCERIDES 90 MG/DL (42-150)
[2017-12-17 16:58] LABS: HEMOGLOBIN A1C 5.3 % (4.3-6.0)
== END ==
LOC: PLAB 07:48
PROVIDERS: ATTEND Family Medicine
DX: E78.2 Mixed hyperlipidemia (principal); F32.0 Major depressive disorder, single episode, mild; I10 Essential (primary) hypertension; R73.09 Other abnormal glucose
CPT/HCPCS: 36415; 80053; 80061; 83036; 84439; 84443; 85025

== ENCOUNTER → 2018-02-12 | Outpatient (CLI) | payer MEDICARE, OTHER ==
[2018-02-12 13:51] LABS: ALBUMIN 3.9 GM/DL (3.4-5.0); AST (GOT) 84 U/L (15-37); BICARBONATE 26.9 MEQ/L (21.0-32.0); BLOOD UREA NITROGEN 16 MG/DL (7-18); CALCIUM 8.9 MG/DL (8.5-10.1); CHLORIDE 107 MEQ/L (98-107); CREATININE 0.78 MG/DL (0.50-1.00); GLOMERULAR FILTRATION RATE 74 ML/MIN (>89); GLUCOSE,RANDOM 70 MG/DL (74-106); SODIUM (NA) 142 MEQ/L (136-145)
[2018-02-12 13:54] LABS: ALKALINE PHOSPHATASE 71 U/L (45-117); ALT (GPT) 90 U/L (10-53); TOTAL BILIRUBIN ADULT 0.5 MG/DL (0.2-1.0); TOTAL PROTEIN 7.4 GM/DL (6.4-8.2)
[2018-02-14 03:50] LABS: ENDOMYSIAL AB SCREEN ND (NEGATIVE); ENDOMYSIAL AB TITER ND (<1:5)
== END ==
LOC: PLAB 10:20
DX: R10.9 Unspecified abdominal pain (principal); K29.80 Duodenitis without bleeding
CPT/HCPCS: 80053; 82784; 83516

== ENCOUNTER → 2018-03-10 | Outpatient (CLI) | payer MEDICARE, OTHER ==
[2018-03-10 14:11] LABS: ALBUMIN 4.1 GM/DL (3.4-5.0)
[2018-03-10 14:15] LABS: DIRECT BILIRUBIN ADULT 0.2 MG/DL (0.0-0.2); INDIRECT BILIRUBIN 0.3 MG/DL (0.0-0.8); TOTAL BILIRUBIN ADULT 0.5 MG/DL (0.2-1.0); TOTAL PROTEIN 7.5 GM/DL (6.4-8.2)
== END ==
LOC: PLAB 11:14
DX: R74.8 Abnormal levels of other serum enzymes (principal)
CPT/HCPCS: 36415; 80076